=== PATIENT | male | born 1955 | race Caucasian/White ===

== ENCOUNTER 2019-03-04 07:58 | Day surgery (SDC) | payer OTHER ==
[~2019-03-04 07:58] MED LIST: CEFAZOLIN 1 GM INJ; CEFAZOLIN 1 GM/50 ML (PMX) 50 ML IVPB; POLYMYXIN/BACITRACIN 1L IRRIG IRR; SOD CHLORIDE 0.9% 1,000 ML IV
[2019-03-04] MEDS ORDERED: hydrALAzine 20 MG INJ IV (11:00)
[2019-03-04] MEDS ORDERED: TRIMETHOBENZAMIDE 100 MG/ML VIAL IM (11:00)
[2019-03-04] MEDS ORDERED: EPHEDrine SULFATE 50 MG/5 ML SYG IV (11:00)
[2019-03-04] MEDS ORDERED: ALBUTEROL 0.083% (NEB) 2.5 MG/3 ML AMP HHN (11:00)
[2019-03-04] MEDS ORDERED: MEPERIDINE 25 MG INJ IV (11:00)
[2019-03-04] MEDS ORDERED: FENTAnyl 50 MCG/ML VIAL IV ×3 (11:00)
[2019-03-04] MEDS ORDERED: DIPHENHYDRAMINE 50 MG INJ IV (11:00)
[2019-03-04] MEDS ORDERED: ONDANSETRON 4 MG INJ IV (11:00)
[2019-03-04] MEDS ORDERED: MIDAZOLAM 1 MG/ML 2 ML INJ IV (11:00)
[2019-03-04] MEDS ORDERED: HYDROmorphONE 1 MG/5 ML IV SYRINGE IV ×3 (11:00)
[2019-03-04] MEDS ORDERED: IPRATROPIUM (NEB) 0.5 MG/2.5 ML AMP HHN (11:00)
[2019-03-04] MEDS ORDERED: LABETALOL HCL 20MG INJ IV (11:00)
[2019-03-04] MEDS ORDERED: OXYCODONE/ACETAMINOPHEN (5/325) TAB PO ×2 (11:00)
[2019-03-04] MEDS ORDERED: HEPARIN 1000 UNITS/ML 10 ML INJ (11:04)
[2019-03-04] MEDS: LIDOCAINE 1%/EPI (1:100,000) (MDV) 20 ML (11:06)
[2019-03-04] MEDS ORDERED: FENTAnyl 50 MCG/ML VIAL (11:26)
[2019-03-04] MEDS ORDERED: PROPOFOL 20 ML (11:26)
[2019-03-04] MEDS ORDERED: MIDAZOLAM 1 MG/ML 2 ML INJ (11:30)
[2019-03-04] MEDS ORDERED: ONDANSETRON 4 MG INJ (11:30)
[2019-03-04] MEDS ORDERED: LIDOCAINE 1%/EPI (1:100,000) (MDV) 20 ML (11:56)
== END 2019-03-04 14:35 | disposition home or self-care (01) ==
LOC: SDS 07:58
DX: C76.0 Malignant neoplasm of head, face and neck (principal); E78.5 Hyperlipidemia, unspecified
CPT/HCPCS: 36561; 71045; 93005

== ENCOUNTER 2019-04-18 07:13 | Day surgery (SDC) | payer OTHER ==
[2019-04-18] MEDS ORDERED: IOHEXOL 300MG/ML 30 ML BTL (09:14)
[2019-04-18] MEDS ORDERED: HEPARIN 1000 UNITS/ML 10 ML INJ (09:19)
== END 2019-04-21 10:21 | disposition home or self-care (01) ==
LOC: SDS 04-21 10:21
DX: Z45.2 Encounter for adjustment and management of vascular access device (principal)
CPT/HCPCS: 36598; 77001

== ENCOUNTER 2019-05-06 11:14 | Day surgery (SDC) | payer OTHER ==
[2019-05-06] MEDS ORDERED: PROPOFOL 20 ML (13:05)
[2019-05-06] MEDS ORDERED: LIDOCAINE 2% (SDV) 5 ML INJ (13:05)
[2019-05-06] MEDS ORDERED: CEFAZOLIN 2 GM/50 ML (PMX) 50 ML IVPB (13:08)
[2019-05-06] MEDS ORDERED: LABETALOL HCL 20MG INJ (13:23)
[2019-05-06] MEDS ORDERED: ONDANSETRON 4 MG INJ IV (13:30)
[2019-05-06] MEDS ORDERED: HYDROmorphONE 1 MG/5 ML IV SYRINGE IV ×2 (14:00)
== END 2019-05-06 15:09 | disposition home or self-care (01) ==
LOC: GIL 11:14
DX: R13.10 Dysphagia, unspecified (principal); I10 Essential (primary) hypertension
CPT/HCPCS: 43246

== ENCOUNTER 2019-06-04 12:44 | Emergency (ER) | payer OTHER ==
[2019-06-04 14:44] LABS: ADD MAN DIFF? NO
[2019-06-04 14:46] LABS: WHITE BLOOD COUNT 4.9 10^3/ul (4.8-10.8)
[2019-06-04 14:46] LABS: ABNORMAL IP MESSAGE 1; BASOPHILS % 0.2 % (0.0-2.0); EOSINOPHILS % 0.6 % (0.0-7.0); HEMATOCRIT 24.1 % (42.0-52.0); HEMOGLOBIN 7.6 g/dl (14.0-18.0); LYMPHOCYTES # 0.3 10^3/ul (0.8-2.9); LYMPHOCYTES % 5.3 % (15.0-51.0); MEAN CORPUSCULAR HEMOGLOBIN 24.7 pg (29.0-33.0); MEAN CORPUSCULAR HGB CONC 31.5 g/dl (32.0-37.0); MEAN CORPUSCULAR VOLUME 78.2 fl (82.0-101.0); MEAN PLATELET VOLUME 8.7 fl (7.4-10.4); MONOCYTE # 0.4 10^3/ul (0.3-0.9); MONOCYTES % 7.6 % (0.0-11.0); NEUTROPHIL # 4.1 10^3/ul (1.6-7.5); NEUTROPHILS % 85.3 % (39.0-77.0); PLATELET COUNT 260 10^3/UL (140-415); POSITIVE DIFF @See below; RED BLOOD COUNT 3.08 10^6/ul (4.70-6.10); RED CELL DISTRIBUTION WIDTH 23.2 % (11.5-14.5)
[2019-06-04] MEDS: SOD CHLORIDE 0.9% 500 ML IV (14:55)
[2019-06-04 15:02] LABS: ALANINE AMINOTRANSFERASE 17 IU/L (13-69); ALBUMIN 3.3 g/dl (3.3-4.9); ALBUMIN/GLOBULIN RATIO 0.82; ALKALINE PHOSPHATASE 87 IU/L (42-121); ANION GAP 6 (5-13); ASPARTATE AMINO TRANSFERASE 17 IU/L (15-46); BILIRUBIN,INDIRECT 0.2 mg/dl (0-1.1); BILIRUBIN,TOTAL 0.2 mg/dl (0.2-1.3); BLOOD UREA NITROGEN 16 mg/dl (7-20); CALCIUM 9.3 mg/dl (8.4-10.2); CARBON DIOXIDE 32 mmol/L (21-31); CHLORIDE 98 mmol/L (97-110); Estimated GFR > 60 mL/min (>60); GLUCOSE 123 mg/dl (70-220); LIPASE 28 U/L (23-300); POTASSIUM 3.3 mmol/L (3.5-5.1); SODIUM 136 mmol/L (135-144); TOTAL PROTEIN 7.3 g/dl (6.1-8.1)
[2019-06-04 15:14] LABS: TROPONIN-I < 0.012 ng/ml (0.000-0.120)
[2019-06-04 15:46] LABS: ADD UMIC YES; UR AMORPHOUS CRYSTAL FEW /HPF (NONE SEEN); UR ASCORBIC ACID 40 mg/dL (NEGATIVE); UR BACTERIA FEW /HPF (NONE SEEN); UR BILIRUBIN (Dip) NEGATIVE (NEGATIVE); UR BLOOD (Dip) NEGATIVE (NEGATIVE); UR CLARITY CLOUDY (CLEAR); UR COLOR YELLOW (YELLOW); UR GLUCOSE (Dip) NEGATIVE (NEGATIVE); UR KETONES (Dip) NEGATIVE (NEGATIVE); UR LEUKOCYTE ESTERASE (Dip) NEGATIVE Leu/ul (NEGATIVE); UR NITRITE (Dip) NEGATIVE (NEGATIVE); UR RBC 1 /HPF (0-5); UR SPECIFIC GRAVITY (Dip) 1.013 (1.003-1.030); UR TOTAL PROTEIN (Dip) NEGATIVE (NEGATIVE); UR UROBILINOGEN (Dip) NEGATIVE (NEGATIVE); UR WBC 5 /HPF (0-5)
[2019-06-04 16:30] LABS: ADD MAN DIFF? NO
[2019-06-04 16:31] LABS: WHITE BLOOD COUNT 4.7 10^3/ul (4.8-10.8)
[2019-06-04 16:31] LABS: ABNORMAL IP MESSAGE 1; BASOPHILS % 0.2 % (0.0-2.0); EOSINOPHILS % 0.9 % (0.0-7.0); HEMATOCRIT 22.7 % (42.0-52.0); HEMOGLOBIN 7.2 g/dl (14.0-18.0); LYMPHOCYTES # 0.2 10^3/ul (0.8-2.9); LYMPHOCYTES % 5.1 % (15.0-51.0); MEAN CORPUSCULAR HEMOGLOBIN 24.7 pg (29.0-33.0); MEAN CORPUSCULAR HGB CONC 31.7 g/dl (32.0-37.0); MEAN PLATELET VOLUME 8.7 fl (7.4-10.4); MONOCYTE # 0.3 10^3/ul (0.3-0.9); MONOCYTES % 7.2 % (0.0-11.0); NEUTROPHILS % 85.5 % (39.0-77.0); PLATELET COUNT 247 10^3/UL (140-415); POSITIVE DIFF @See below; RED BLOOD COUNT 2.91 10^6/ul (4.70-6.10)
[2019-06-04] MEDS: HEPARIN (100 UNITS/ML) 5 ML SYG CATHETER (17:03)
[2019-06-04] MEDS ORDERED: ONDANSETRON 4 MG INJ IV (17:17)
[2019-06-04 18:57] LABS: HEPATITIS B SURFACE ANTIGEN NEGATIVE (NEGATIVE)
[2019-06-04 19:14] LABS: HEPATITIS C VIRAL ANTIBODY NEGATIVE (NEGATIVE)
[2019-06-04 19:15] LABS: HEPATITIS B SURFACE ANTIBODY NEGATIVE (NEGATIVE)
== END 2019-06-04 17:50 | disposition home or self-care (01) ==
LOC: E/R 12:44
DX: I95.9 Hypotension, unspecified (principal); I10 Essential (primary) hypertension; Z85.89 Personal history of malignant neoplasm of other organs and systems
CPT/HCPCS: 71045; 80053; 81001; 83690; 84484; 85025; 86703; 86706; 86803; 87340; 93005; 99285-25